=== PATIENT | male | born 1965 | race Caucasian/White ===

== ENCOUNTER 2017-03-29 20:05 | Emergency (ER) | payer SELFPAY ==
[2017-03-29] MEDS ORDERED: cefTRIAXone 1,000 MG in Lidocaine 1% 4 ML IM ONE (21:12)
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
[2017-03-29] MEDS ORDERED: Ibuprofen 800 MG Tab PO ONE (21:33)
[2017-03-29 21:50] VITALS: BP 139/94
== END 2017-03-29 21:54 | disposition home or self-care (01) ==
LOC: MW.ED 20:05
DX: K04.7 Periapical abscess without sinus (principal); Z88.0 Allergy status to penicillin
CPT/HCPCS: 96372; 99282; A9270; J0696

== ENCOUNTER 2018-01-08 20:49 | Emergency (ER) | payer OTHER ==
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
[2018-01-09 00:23] VITALS: BP 104/62
== END 2018-01-08 21:11 ==
LOC: MW.ED 20:49
DX: Z13.9 Encounter for screening, unspecified (principal); Z88.0 Allergy status to penicillin
CPT/HCPCS: 82962; 99283